=== PATIENT | female | born 1950 | race Caucasian/White ===

== ENCOUNTER 2018-02-21 18:58 | Emergency (ER) | payer OTHER, MEDICAID ==
[~2018-02-21] VITALS: Ht 147.3 cm; Wt 65.3 kg
[2018-02-21 19:01] VITALS: BP 102/68
--- NOTE | 2018-02-21 19:08 | NUR ---
Patient BIBA BLS, transferred to bed 6. RN evaluating patient at bedside.
--- NOTE | 2018-02-21 19:36 | NUR ---
Dr. Costa evaluating patient at bedside.
--- NOTE | 2018-02-21 19:40 | NUR ---
PT BIBA FOR R NEPHROSTOMY TUBE LEAKING. UPON INSPECTION NO LEAKING VISIBLE. 600ML CLEAR YELLOW URINE COLLECTIED IN URINE COLLECTIONJ BAG. NO ERYTHEMA, EDEMA, OR PAIN PRESENT AT R NEPHROSTOMY TUBE. PT DENIES PAIN AT THIS TIME. PT DENIES N/V/D OR FEVER. ER MD NOTIFIED OF PT CONDITION. SAFETY PRECAUTIONS IN PLACE. WILL CONTINUE TO MONITOR.
[2018-02-21 20:10] VITALS: BP 107/72
--- NOTE | 2018-02-21 20:11 | NUR ---
Patient discharged with v/s stable. Written and verbal after care instructions given and explained. Patient alert, oriented and verbalized understanding of instructions. Wheel Chair Assisted with by caregiver. All questions addressed prior to discharge. ID band removed. Patient advised to follow up with PMD.NO Rx given. Patient educated on indication of medication including possible reaction and side effects. Opportunity to ask questions provided and answered.
== END 2018-02-21 20:10 | disposition home or self-care (01) ==
LOC: MED 18:58
DX: T83.092A Other mechanical complication of nephrostomy catheter, initial encounter (principal); Y92.89 Other specified places as the place of occurrence of the external cause
CPT/HCPCS: 99283

== ENCOUNTER 2018-05-08 22:34 | Emergency (ER) | payer OTHER, MEDICAID ==
[~2018-05-08] VITALS: Ht 142.2 cm; Wt 65.8 kg
--- NOTE | 2018-05-08 22:34 | NUR ---
Dwaine hayes in EDM - 05/08/18 at 2324 by JOSE 2032- PT BIBA ALS, FULL ARREST. DR. PRICE AND RT AT BEDSIDE
--- NOTE | 2018-05-08 22:34 | NUR ---
2233- PT BIBA ALS, FULL ARREST. DR. PRICE AND RT AT BEDSIDE
--- NOTE | 2018-05-08 22:41 | NUR ---
PT PRONOUNCED BY DR. PRICE AT THIS TIME
--- NOTE | 2018-05-08 22:41 | NUR ---
2232- PATIENT ARRIVED BY AMBULANCE. EMT REPORTS PATIENT HAD WITNESSED CODE AT FACILITY AND WAS REPORTED DOWN 5 MINUTES PRIOR TO [facility] ARRIVAL. [facility] REPORTS PATIENT DOWN TIME 30 MINUTES AT TIME OF ARRIVAL TO ER. ASYSTOLE REPORTED. CPR BEING PREFORMED. PATIENT TRANSFERRED TO BED AND HOOKED TO MONITOR. ASYSTOLE ON MONITOR. PULSELESS. 2235- FIRST ROUND OF EPI GIVEN IN RIGHT ANKLE IO. 2237- RHYTHM CHECK PERFORMED; BRIEF PEA AND THEN ASYSTOLE ON MONITOR. NO PULSE. CPR RESUMED. 2239- SECOND ROUND OF EPI GIVEN IN RIGHT ANKLE IO. 224- PULSELESS WITH ASYSTOLE ON MONITOR. PRONOUNCED BY DR PRICE. Addendum: 05/08/18 at 2334 by SHAYNE PATIETN INTUBATED AND GIVEN 4 ROUNDS OF EPI PRIOR TO ARRIVAL.
--- NOTE | 2018-05-08 22:46 | NUR ---
[place] [facility] AT BEDSIDE
--- NOTE | 2018-05-08 23:00 | NUR ---
SPOKE WITH PAMELLA AT [facility]. GAVE HER REPORT ON PATIENT CONDITION AND HISTORY. STATES PATIENT MAY BE ELIGIBLE FOR DONATION. STATES SHE WILL CHECK BACK IN AN HOUR. GAVE REFERRAL NUMER #[id number].
--- NOTE | 2018-05-08 23:11 | NUR ---
SPOKE WITH [facility]. STATED THEY WOULD REPORT THE AND CALL BACK.
--- NOTE | 2018-05-08 23:47 | NUR ---
2233 PATIENT ARRIVED BY [facility] BEING BAGGED AT 100% AND CHEST COMPRESSIONS BEING DONE. TOOK OVER BAGGING WITH AMBU BAG AT 100% FIO2. SXNED PTS ETUBE WITH 14 DANISH CATATHER. PT HAD VOMMITED ENROUTE. PT HAD SIZE 6.5 T[address]BE [address] WEI CALLED CODE. PT
--- NOTE | 2018-05-08 23:50 | NUR ---
PATIENT FAMILY ARRIVED IN THE ER. TAKEN TO HOSPITAL CONFERENCE ROOM
--- NOTE | 2018-05-09 00:02 | NUR ---
DR. PRICE SPEAKING WITH FAMILY
--- NOTE | 2018-05-09 00:10 | NUR ---
CALL FROM PCP DR. Gus LAST. DR. LAST MADE AWARE OF PT PASSING
--- NOTE | 2018-05-09 00:27 | NUR ---
SPOKE W/ C MANAGER CASHMALATHI. PT CLEARED AT THIS TIME AND ASSIGNED #[id number]. PRIMARY RN, LIZZ NOTIFIED.
--- NOTE | 2018-05-09 00:27 | NUR ---
CHEMISTRY INSTRUCTOR CALLED BACK AND SPOKE WITH TALLOW PUMPERMARK PHELAN
--- NOTE | 2018-05-09 00:52 | NUR ---
PATEINT TAKEN TO ROOM 126. FAMILY BROUGHT IN TO SEE PATIENT.
--- NOTE | 2018-05-09 00:52 | NUR ---
BODY MOVED TO 125
--- NOTE | 2018-05-09 02:31 | NUR ---
PATIENT PICKED UP BY [facility] FOR TRANSPORT.
== END 2018-05-08 22:41 | disposition expired ==
LOC: MED 22:34
DX: I46.9 Cardiac arrest, cause unspecified (principal); F03.90 Unspecified dementia, unspecified severity, without behavioral disturbance, psychotic disturbance, mood disturbance, and anxiety; I10 Essential (primary) hypertension
CPT/HCPCS: 92950; 99285